=== PATIENT | female | born 1960 | race Caucasian/White ===

== ENCOUNTER → 2016-04-08 | Outpatient (CLI) | payer BC, OTHER ==
[~2016-04-08] MED LIST: AUGMENTIN 875 M1 TAB PO; BENICAR40 MG PO; CLARITIN10 MG PO; MEDROL DOSEPAK4 MG PO; MOTRIN800 MG PO
[2016-04-08 09:48] LABS: EST GLOM FILT AFRICAN AMERICAN > 60 ml/min
== END | disposition home or self-care (01) ==
LOC: LAB 09:21 → CT 10:00
PROVIDERS: Radiology Diagnostic Radiology
DX: K76.0 Fatty (change of) liver, not elsewhere classified (principal); R91.1 Solitary pulmonary nodule; F17.200 Nicotine dependence, unspecified, uncomplicated

== ENCOUNTER → 2017-02-26 | Outpatient (CLI) | payer BC, OTHER | END | disposition home or self-care (01) | LOC: RAD 09:48 | DX: J43.9 Emphysema, unspecified (principal); F17.200 Nicotine dependence, unspecified, uncomplicated ==

== ENCOUNTER → 2018-08-25 | Outpatient (CLI) | payer BC, OTHER | END | disposition home or self-care (01) | LOC: MAMMO 08:39 | DX: Z12.31 Encounter for screening mammogram for malignant neoplasm of breast (principal) ==

== ENCOUNTER 2018-12-19 15:22 | Inpatient (IN) | payer BC ==
[~2018-12-19] VITALS: Ht 152.4 cm; Wt 53.6 kg
[2018-12-19] VITALS (7 sets, daily range): BP systolic 93–178; BP diastolic 46–70
--- NOTE | 2018-12-19 16:53 | NUR ---
JUNE THACKER NOTIFIED THAT THE PT SAID SHE DID NOT REVIEVE ANY PAIN RELIEF FROM THE MORPHINE
[2018-12-19 16:55] LABS: BILIRUBIN NEGATIVE (NEGATIVE); BLOOD TRACE-INTACT (NEGATIVE); CLARITY CLEAR (CLEAR); COLOR YELLOW (YELLOW); GLUCOSE NEGATIVE (NEGATIVE); KETONE NEGATIVE (NEGATIVE); LEUKO ESTERASE 2+ (NEGATIVE); NITRITE NEGATIVE (NEGATIVE); SPECIFIC GRAVITY <= 1.005 (1.005-1.030); UROBILINOGEN 0.2 E.U./dl (0.2-1.0)
[2018-12-19 17:00] LABS: EPITHELIAL CELLS 51-100
[2018-12-19 17:01] LABS: BACTERIA 1+; RBC 0-2 rbc/hpf (0-2); WBC 51-100 wbc/hpf (0-5)
--- NOTE | 2018-12-19 17:53 | NUR ---
2 ICE PACKS PROVIDED FOR PAIN PER PT REQUEST
[2018-12-19 18:03] LABS: HEMATOCRIT 37.3 % (37.0-47.0); MEAN CELL VOLUME 87.6 fl (81.0-99.0); MEAN CORPUSCULAR HGB 30.5 pg (27.0-31.0); MEAN CORPUSCULAR HGB CONC 34.9 g/dl (33.0-37.0); MEAN PLATELET VOLUME 8.6 fl (9.6-12.3); PLATELET COUNT AUTOMATED 348 10*3/uL (130-400); RED BLOOD COUNT 4.26 10*6/uL (4.10-5.10); RED CELL DISTRI WIDTH 11.9 % (0-14.5); WHITE BLOOD COUNT 13.1 10*3/uL (4.8-10.8)
[2018-12-19 18:12] LABS: INTERNATIONAL NORM RATIO 0.9 (2.0-3.5)
[2018-12-19 18:18] LABS: ALBUMIN 3.7 gm/dl (3.1-4.5); ALKALINE PHOSPHATASE 83 U/L (45-117); BUN 12 mg/dl (7-24); CHLORIDE 92 mmol/L (98-107); CREATININE 0.65 mg/dL (0.55-1.02); POTASSIUM 3.9 mmol/L (3.5-5.1); SGOT/AST 17 IU/L (3-35); SGPT/ALT 28 U/L (12-78); SODIUM 123 mmol/L (136-145); TOTAL PROTEIN 7.3 gm/dL (6.4-8.2)
[2018-12-19 18:19] LABS: TROPONIN I < 0.015 ng/ml (<0.045)
[2018-12-19 18:22] LABS: TOTAL CELLS COUNTED 100 #CELLS
[2018-12-19 18:23] LABS: PLATELET SUFFICIENCY NORMAL (NORMAL)
--- NOTE | 2018-12-19 20:00 | NUR ---
THE PT WAS GIVEN A WARM BLANKET TO PRESS AGAINST HER BACK FOR THE PAIN. SHE SAID THE WARMTH FELT BETTER THAN THE ICE PACKS SHE WAS USING EARLIER
--- NOTE | 2018-12-19 21:25 | NUR ---
A 58 year old female, admitted to 5E, under the services of MAMADOU Pavon DO with a diagnosis of LUMBAR RIDICULOPATHY. Chief complaint is BACK PAIN. Patient arrived via bed from ER. Initial assessment completed. Vital signs taken and recorded. MAMADOU PAVON DO notified of admission to the unit. Orders received. See assessment for past medical history, medications and allergies. Patient and/or family oriented to unit. [facility] 5E visitation policy reviewed. Clothing/patient valuable form completed. SKIN WDI. NO WOUNDS PRESENT ON ADMISSION. RAIMUNDO FENG
[2018-12-19] MEDS ORDERED: COZAAR100 MG PO (21:55)
[2018-12-19] MEDS ORDERED: Diltiazem180 MG PO (21:55)
[2018-12-19] MEDS ORDERED: HYDROCHLOROTHIA25 M1 PO (21:56)
--- NOTE | 2018-12-19 22:12 | NUR ---
DR GUTIERREZ NOTIFIED OF PTS ARRIVAL TO FLOOR AND UPDATED MED REC. PT REQUESTS AN ORDER FOR A KPAD TO HELP WITH HER BACK PAIN, DR GUTIERREZ NOTIFIED OF THIS ALONG WITH HER BP READING OF 170/68 MANUALLY AND C/O 10/10 BACK PAIN.
--- NOTE | 2018-12-19 22:55 | NUR ---
PRN MORPHINE ADMINISTERED PRESCRIBED FOR PT C/O 12/30 RIGHT SIDED SCIATIC PAIN THAT RADIATES DOWN HER LEG INTO HER CALF. WILL CONTINUE TO MONITOR AND REASSESS. CALL LIGHT IN REACH.
[2018-12-20] VITALS: BP 170/60
[2018-12-20 06:50] LABS: HEMOGLOBIN 13.2 g/dl (12.0-16.0); MEAN CELL VOLUME 87.6 fl (81.0-99.0); MEAN CORPUSCULAR HGB 30.4 pg (27.0-31.0); MEAN CORPUSCULAR HGB CONC 34.7 g/dl (33.0-37.0); MEAN PLATELET VOLUME 8.6 fl (9.6-12.3); PLATELET COUNT AUTOMATED 380 10*3/uL (130-400); RED BLOOD COUNT 4.34 10*6/uL (4.10-5.10); RED CELL DISTRI WIDTH 11.8 % (0-14.5)
[2018-12-20 07:09] LABS: BUN 12 mg/dl (7-24); CHLORIDE 99 mmol/L (98-107); CHOLESTEROL 190 mg/dL (<200); CREATININE 0.59 mg/dL (0.55-1.02); HDL CHOLESTEROL 102 mg/dl (40-60); LDL CHOLESTEROL 79 mg/dL (9-159); PHOSPHOROUS 3.4 mg/dL (2.5-4.9); POTASSIUM 3.9 mmol/L (3.5-5.1); SODIUM 128 mmol/L (136-145); TRIGLYCERIDES 47 mg/dl (<150); VLDL CHOLESTEROL 9 mg/dL (6-40)
--- NOTE | 2018-12-20 08:05 | NUR ---
NORCO GIVEN FOR C/O BACK PAIN. RATES 8/10 ON PAIN SCALE. WILL MONITOR.
[2018-12-20 08:08] LABS: BURR CELLS FEW; PLATELET SUFFICIENCY NORMAL (NORMAL); ROULEAUX SLIGHT; TOTAL CELLS COUNTED 100 #CELLS
--- NOTE | 2018-12-20 09:10 | NUR ---
JOSE EFFECTIVE PER PT.
[2018-12-20 12:00] VITALS: BP 166/76
--- NOTE | 2018-12-20 12:24 | NUR ---
DR. GARCIA'S OFFICE NOTIFIED OF CONSULT.
--- NOTE | 2018-12-20 13:34 | NUR ---
NORCO GIVEN FOR C/O BACK PAIN. RATES 8/10 ON PAIN SCALE. WILL MONITOR.
--- NOTE | 2018-12-20 14:45 | NUR ---
JOSE EFFECTIVE PER PT.
--- NOTE | 2018-12-20 15:32 | NUR ---
Occupational Therapy evaluation completed on 5 with full eval to follow. Precautions include chronic pain, RLE pain,low complexity level 69683 via chart review, testing and evaluation. Recommend no further OT at this time and home upon dc with patient to have outpatient PT for back pain. Thank you. Karishma Fried OTR/l
--- NOTE | 2018-12-20 15:32 | NUR ---
PHYSICAL THERAPY Physical therapy evaluation complete, 5E. Full evaluation/details to follow. Low complexity PT evaluation per chart review and evaluation (32865). PT to progress gait, transfers, LE strength, and balance per POC. Recommend outpatient PT services at discharge. Thank you. Mariann Cabrera,PT,DPT
[2018-12-20 16:00] VITALS: BP 179/62
--- NOTE | 2018-12-20 16:58 | NUR ---
Stock Trader in to talk to patient. Patient states lives at HOME with . There are FEW steps in the home. Physician: HUMA MESA Pharmacy: [facility] MAIL ORDER Home health services: NONE Patient's level of ADLs: INDEPENDENT Patient has working utilities: YES DME: NONE Follow-up physician's appointment after d/c: WILL BE MADE BY HOSPITALIST NURSE DIRECTOR ON DISCHARGE Does patient want to access PORTAL?: NO Discharge plan PT LIVES AT HOME WITH HER AND IS INDEPENDENT N HER CARE. STATES SHE WILL RETURN HOME WITH NO NEEDS ON DISCHARGE. WILL CONTINUE TO FOLLOW. WILL HAVE A RIDE HOME.. AIDE MEZA
[2018-12-20 20:00] VITALS: BP 191/72
--- NOTE | 2018-12-20 22:27 | NUR ---
PT MEDICATED PER ORDER WITH NORCO FOR COMPLAINT OF 9/10 R LEG PAIN. WILL MONITOR EFFECTIVENESS.
[2018-12-20 22:34] VITALS: BP 162/78
--- NOTE | 2018-12-20 23:00 | NUR ---
DR. GUIDO NOTIFIED OF ELEVATED BLOOD PRESSURES. NO NEW ORDERS AT THIS TIME.
[2018-12-21] VITALS: BP 164/76
--- NOTE | 2018-12-21 | NUR ---
PER PT, NORCO EFFECTIVE FOR LEG PAIN.
[2018-12-21 07:36] LABS: BUN 13 mg/dl (7-24); CHLORIDE 97 mmol/L (98-107); CREATININE 0.61 mg/dL (0.55-1.02); SODIUM 128 mmol/L (136-145)
[2018-12-21 08:00] VITALS: BP 160/70; BP 200/98
--- NOTE | 2018-12-21 08:46 | NUR ---
NORCO GIVEN FOR COMPLAINTS OF LOWER BACK PAIN
--- NOTE | 2018-12-21 09:05 | NUR ---
IN ROOM AT TIME OF BP CHECK 200/98; ORDERED TO GIVE MEDICATIONS EARLY NOW.
--- NOTE | 2018-12-21 10:45 | NUR ---
PHYSICAL THERAPY Patient seen this am 1:1 for therapy visit and was resting supine in bed upon therapist arrival. Patient identified by name / and reports 2/10 Posterior R hip pain along with n/t along lateral side of R Gastroc. Patient transfers all with SBA and instructed on both seated / standing Hamstring / Gastroc stretch. Patient completed 10 reps each with 5 second hold prior to ambulating ad monica in hallway without AD, SBA, > 200'x 1 demonstrating slow, steady aric and no LOB. Patient returned to supine in bed and remained with call light, tray table and cell phone. Will continue per POC as tolerated, total treatment time 14 minutes. Shiva Uriostegui, TUBULAR SPLITTING MACHINE TENDER
[2018-12-21 12:00] VITALS: BP 186/73; BP 188/78
[2018-12-21 12:20] VITALS: BP 188/78
--- NOTE | 2018-12-21 13:13 | NUR ---
DR CARLOS NOTIFIED OF THIS PATIENTS BLOOD PRESSURES THIS AM.
--- NOTE | 2018-12-21 14:19 | NUR ---
PT CONTINUES TO DENY NEEDS AT HOME ON DISCHARGE. WILL CONTINUE TO FOLLOW.
--- NOTE | 2018-12-21 15:16 | NUR ---
PHYSICAL THERAPY CO-SIGN I approve of the Physical Therapy notes written above. TIARRA MOREAU PT, DPT
[2018-12-21 16:00] VITALS: BP 168/66
--- NOTE | 2018-12-21 19:57 | NUR ---
PATIENT MEDICATED WITH NORCO FOR COMPLAINTS OF RIGHT LEG PAIN. WILL CONTINUE TO MONITOR. CALL LIGHT IN REACH.
[2018-12-21 20:00] VITALS: BP 140/70
[2018-12-22 00:29] VITALS: BP 180/65
--- NOTE | 2018-12-22 06:25 | NUR ---
PATIENT MEDICATED WITH NORCO FOR COMPLAINTS OF RIGHT LEG PAIN. WILL CONTINUE TO MONITOR.
[2018-12-22 07:27] LABS: CHLORIDE 96 mmol/L (98-107); POTASSIUM 4.4 mmol/L (3.5-5.1); SODIUM 128 mmol/L (136-145)
[2018-12-22 07:32] LABS: BUN 14 mg/dl (7-24); CREATININE 0.65 mg/dL (0.55-1.02)
[2018-12-22 08:00] VITALS: BP 208/88
[2018-12-22 10:59] VITALS: BP 178/80
--- NOTE | 2018-12-22 11:00 | NUR ---
PATIENT MEDICATED WITH PO NORCO AT THIS TIME FOR COMPLAINTS OF LEG/LOWER BACK PAIN 08/30. WILL MONITOR.
[2018-12-22 12:00] VITALS: BP 150/70
--- NOTE | 2018-12-22 12:00 | NUR ---
PER PATIENT, PAIN MED HAS BEEN EFFECTIVE.
--- NOTE | 2018-12-22 15:24 | NUR ---
PT CONTINUES TO DENY NEEDS ON DISCHARGE. WILL RETURN HOME ON DISCHARGE.
[2018-12-22 16:00] VITALS: BP 143/58
[2018-12-22 20:00] VITALS: BP 167/68
[2018-12-23] VITALS: BP 125/67
--- NOTE | 2018-12-23 05:37 | NUR ---
PATIENT REFUSED NORCO AFTER ALREADY OPENED. SAID SHE HASN'T BEEN TAKING IT. WASTED INTO WASTE BOTTLE ON WALL AT NURSE'S STATION. WITNESSED BY NARAYAN SEVERINO RN.
[2018-12-23 06:47] LABS: BUN 13 mg/dl (7-24); CHLORIDE 94 mmol/L (98-107); CREATININE 0.63 mg/dL (0.55-1.02); POTASSIUM 4.8 mmol/L (3.5-5.1); SODIUM 127 mmol/L (136-145)
[2018-12-23 08:00] VITALS: BP 176/67
--- NOTE | 2018-12-23 08:45 | NUR ---
PHYSICAL THERAPY Patient seen this am 1:1 for therapy visit and was supine in bed upon therapist arrival. Patient identified by name / , reporting only very mild distal / lateral Gastroc, ankle n/t and no c/o's pain. Patient transfers all with SBA and reports she has continued with B hamstring /gastroc stretches and feels this has helped with her decreaed c/o pain. Patient ambulates SBA without AD, > 200'x 2, ad monica in hallway, demonstrating smooth aric and no LOB. Patient also completed TUG in 9.48 seconds, no AD, no LOB. Patient returnd to EOB sit and remained with call light, tray table and cell phone. Oleg continue per POC as tolerated, total treatment time 17 minutes. Shiva Uriostegui, PLANNING AND ANALYSIS MANAGER
[2018-12-23 09:17] VITALS: BP 156/70
--- NOTE | 2018-12-23 09:23 | NUR ---
IN TO SEE PATIENT REGARDING PLAN OF CARE.
[2018-12-23] MEDS ORDERED: CARVEDILOL25 MG PO (11:33)
[2018-12-23] MEDS ORDERED: 'CLONIDINE0.1 MG PO (11:33)
[2018-12-23] MEDS ORDERED: TYLENOL EXTRA500 M2 PO (11:33)
[2018-12-23] MEDS ORDERED: AMLODIPINE BESYL5 MG PO (11:33)
[2018-12-23] MEDS ORDERED: PREDNISONE10 MG PO (11:36)
[2018-12-23 12:00] VITALS: BP 130/60
--- NOTE | 2018-12-23 13:21 | NUR ---
Discharge instructions reviewed with patient/family. Patient receptive and verbalizes understanding. Follow-up care arranged. Written instructions given to patient/family. SEPIDEH GORE
--- NOTE | 2018-12-23 16:00 | NUR ---
PHYSICAL THERAPY CO-SIGN I approve of the Physical Therapy notes written above. TIARRA MOREAU PT,DPT
== END 2018-12-23 13:21 | disposition home or self-care (01) | DRG 552 ==
LOC: ED 15:22 → 5E 20:39 → EDHOLD 20:39 → 5E 21:32
PROVIDERS: Physician Assistant; Student in an Organized Health Care Education/Training Program; ADMIT Family Medicine
DX: M54.16 Radiculopathy, lumbar region (principal); E87.1 Hypo-osmolality and hyponatremia; R82.71 Bacteriuria; M54.41 Lumbago with sciatica, right side; D72.829 Elevated white blood cell count, unspecified; I11.9 Hypertensive heart disease without heart failure; M51.27 Other intervertebral disc displacement, lumbosacral region; R73.9 Hyperglycemia, unspecified; R00.0 Tachycardia, unspecified; Z87.891 Personal history of nicotine dependence; Z79.899 Other long term (current) drug therapy; Z90.49 Acquired absence of other specified parts of digestive tract; Z98.51 Tubal ligation status; Z82.49 Family history of ischemic heart disease and other diseases of the circulatory system; Z80.8 Family history of malignant neoplasm of other organs or systems

== ENCOUNTER → 2019-12-09 | Outpatient (CLI) | payer BC ==
[~2019-12-09] MED LIST changes: +'CLONIDINE0.1 MG PO; +AMLODIPINE BESYL5 MG PO; +CARVEDILOL25 MG PO; +COZAAR100 MG PO; +Diltiazem180 MG PO; +HYDROCHLOROTHIA25 M1 PO; +PREDNISONE10 MG PO; +TYLENOL EXTRA500 M2 PO
[2019-12-09 10:10] LABS: BASO # 0.1 10*3/uL (0.0-0.1); BASO % 0.9 % (0.0-1.0); EOS # 0.2 10*3/uL (0.0-0.4); EOS % 2.5 % (1.0-4.0); HEMATOCRIT 36.2 % (37.0-47.0); LYMPH # 1.4 10*3/uL (1.3-4.4); LYMPH % 18.8 % (27.0-41.0); MEAN CELL VOLUME 85.4 fl (81.0-99.0); MEAN CORPUSCULAR HGB 28.5 pg (27.0-31.0); MEAN CORPUSCULAR HGB CONC 33.4 g/dl (33.0-37.0); MEAN PLATELET VOLUME 8.5 fl (9.6-12.3); MONO # 0.8 10*3/uL (0.1-1.0); MONO % 11.2 % (3.0-9.0); NEUT % 66.2 % (47.0-73.0); PLATELET COUNT AUTOMATED 362 10*3/uL (130-400); RED BLOOD COUNT 4.24 10*6/uL (4.10-5.10); RED CELL DISTRI WIDTH 12.4 % (0-14.5); WHITE BLOOD COUNT 7.5 10*3/uL (4.8-10.8)
[2019-12-09 10:40] LABS: ALBUMIN 3.5 gm/dl (3.1-4.5); ALKALINE PHOSPHATASE 137 U/L (45-117); BUN 8 mg/dl (7-24); CHLORIDE 89 mmol/L (98-107); CREATININE 0.65 mg/dL (0.55-1.02); SGOT/AST 15 IU/L (3-35); SGPT/ALT 31 U/L (12-78); SODIUM 121 mmol/L (136-145); TOTAL PROTEIN 7.4 gm/dL (6.4-8.2)
== END | disposition home or self-care (01) ==
LOC: LAB 09:44
PROVIDERS: ATTEND Family Medicine
DX: I10 Essential (primary) hypertension (principal)

== ENCOUNTER → 2019-12-15 | Outpatient (CLI) | payer BC | END | disposition home or self-care (01) | LOC: LAB 11:25 | PROVIDERS: ATTEND Family Medicine | DX: I10 Essential (primary) hypertension (principal) ==

== ENCOUNTER 2020-01-13 09:19 | Inpatient (IN) | payer BC ==
[2020-01-13] VITALS (13 sets, daily range): BP systolic 100–269; BP diastolic 48–90
[~2020-01-13] VITALS: Ht 152.4 cm; Wt 52.0 kg
--- NOTE | 2020-01-13 09:21 | NUR ---
CALLED PT FOR TRIAGE AND SHE WAS IN THE BATHROOM PER HER .
[2020-01-13] MEDS ORDERED: CLONIDINE HCL0.2 MG PO (09:33)
[2020-01-13] MEDS ORDERED: LABETALOL HCL100 MG PO (09:35)
[2020-01-13 09:46] LABS: BASO # 0.1 10*3/uL (0.0-0.1); BASO % 0.9 % (0.0-1.0); EOS # 0.2 10*3/uL (0.0-0.4); HEMATOCRIT 40.3 % (37.0-47.0); LYMPH # 1.1 10*3/uL (1.3-4.4); LYMPH % 14.1 % (27.0-41.0); MEAN CELL VOLUME 86.1 fl (81.0-99.0); MEAN CORPUSCULAR HGB 28.2 pg (27.0-31.0); MEAN CORPUSCULAR HGB CONC 32.8 g/dl (33.0-37.0); MEAN PLATELET VOLUME 8.9 fl (9.6-12.3); MONO # 0.6 10*3/uL (0.1-1.0); MONO % 8.1 % (3.0-9.0); NEUT # 5.7 10*3/uL (2.3-7.9); NEUT % 74.6 % (47.0-73.0); PLATELET COUNT AUTOMATED 413 10*3/uL (130-400); RED BLOOD COUNT 4.68 10*6/uL (4.10-5.10); RED CELL DISTRI WIDTH 12.9 % (0-14.5); WHITE BLOOD COUNT 7.6 10*3/uL (4.8-10.8)
[2020-01-13 09:55] LABS: ACT PARTIAL THROMBO TIME 31.3 SECONDS (20.0-32.1); INTERNATIONAL NORM RATIO 0.9 (2.0-3.5)
[2020-01-13 10:01] LABS: ALBUMIN 3.8 gm/dl (3.1-4.5); ALKALINE PHOSPHATASE 170 U/L (45-117); BUN 7 mg/dl (7-24); CHLORIDE 104 mmol/L (98-107); CREATININE 0.68 mg/dL (0.55-1.02); POTASSIUM 3.9 mmol/L (3.5-5.1); SGOT/AST 16 IU/L (3-35); SGPT/ALT 27 U/L (12-78); SODIUM 136 mmol/L (136-145); TOTAL PROTEIN 8.4 gm/dL (6.4-8.2)
[2020-01-13 10:06] LABS: TROPONIN I < 0.015 ng/ml (<0.045)
--- NOTE | 2020-01-13 10:37 | NUR ---
PATIENT C/O OF DRY MOUTH, WATER AND SOME ICE CHIPS GIVEN AT THIS TIME. NO S/S OF DISTRESS NOTED. WILL CONTINUE TO MONITOR.
--- NOTE | 2020-01-13 11:23 | NUR ---
LYING IN BED SUPINE, EYES CLOSED, RESPS EASY.
--- NOTE | 2020-01-13 12:01 | NUR ---
PT IS SOUND ASLEEP IN BED, RESPS EASY.
--- NOTE | 2020-01-13 14:26 | NUR ---
BOXED LUNCH PROVIDED REQUESTED.
--- NOTE | 2020-01-13 15:30 | NUR ---
BED IS NOT READY FOR OCCUPANCY, RN WILL CALL WHEN ROOM IS CLEANED.
--- NOTE | 2020-01-13 16:20 | NUR ---
A 59, admitted to , under the services of Dr. ANTONIO BENAVIDES,RONNELL Pham with a diagnosis of CHEST PAIN. Chief complaint is LIGHT HEADED. Patient arrived via stretcher from ER. Monitor applied. Initial assessment completed. Vital signs taken and recorded. DR. ANTONIO BENAVIDES,RONNELL Pham notified of admission to the unit. Orders received. See assessment for past medical history, medications and allergies. Patient and/or family oriented to unit. [facility] ICCU visitation policy reviewed. Clothing/patient valuable form completed. SVITLANA LOPEZ
--- NOTE | 2020-01-13 17:00 | NUR ---
PATIENT ANXIOUS ABOUT MEDICATIONS.
--- NOTE | 2020-01-13 18:00 | NUR ---
PATIENT PUT CALL LIGHT ON AGAIN ASKING ABOUT MEDICATIONS. PATIENT IS ANXIOUS. EDUCATED AGAIN AND EXPLAINED WHEN HER MEDICATIONS WOULD BE GIVEN. PATIENT EXPRESSED THE NEED FOR HOME MEDICATIONS FOR NERVES. TOLD PATIENT TO TALK IT OVER WITH DOCTOR TOMORROW.
--- NOTE | 2020-01-13 22:00 | NUR ---
PT SITTING UP IN BED. BP 198/82, SEE EMAR. CALLED DR. ALVAREZ AT 2218 REGARDING PT HOME MEDICATION DOSE. CHANGED IN EMAR. MEDICATIONS GIVEN. WILL MONITOR. NO C/O AT THIS TIME. CALL LIGHT IN REACH. SEE SHIFT ASSESSMENT.
[2020-01-14] VITALS (10 sets, daily range): BP systolic 135–260; BP diastolic 51–99
--- NOTE | 2020-01-14 | NUR ---
PT RESTING IN BED WITH EYES CLOSED. RESP-EASY AND REGULAR. CALL LIGHT IN REACH.
--- NOTE | 2020-01-14 02:25 | NUR ---
PT AWAKEN TO CHECK BP 148/70. NO C/O AT THIS TIME. CALL LIGHT IN REACH.
--- NOTE | 2020-01-14 05:40 | NUR ---
RESTING IN BED. BP 218/86. MEDICATED WITH AM BP MEDICATION, SEE EMAR. C/O HEADACHE. CALL LIGHT IN REACH. WILL MONITOR BP.
--- NOTE | 2020-01-14 06:45 | NUR ---
CALLED DR. MENDIOLA WITH BP 172/80, MADE AWARE OF PREVIOUS BP. PER HIM RECHECK BP IN 1 HOUR. ALSO PT STATES HEADACHE IS GONE. CALL LIGHT IN REACH.
--- NOTE | 2020-01-14 08:00 | NUR ---
PATIENT ALERT ORIENTED RESTING IN BED. BP 148/84 MANUAL. DENIES CHEST PAIN.
--- NOTE | 2020-01-14 10:00 | NUR ---
PATIENT WALKING IN HALLS.
--- NOTE | 2020-01-14 14:00 | NUR ---
DR. ALVAREZ AWARE OF BLOOD PRESSURE 206/70. MEDICATED WITH 2.5 IV LOPRESSOR PER ORDER.
--- NOTE | 2020-01-14 14:51 | NUR ---
MANUAL BP RECHECK 168/80.
--- NOTE | 2020-01-14 15:17 | NUR ---
PATIENT ANXIOUS OUT TO DESK ASKING TO SEE DOCTOR. REASSURED HER THE DOCTOR WOULD SEE HER.
--- NOTE | 2020-01-14 20:00 | NUR ---
SPOKE WITH DR. ALVAREZ AT THIS TIME NOTIFIED HIM OF PATIENTS BLOOD PRESSURE BEING 190/78 MANUALLY. ORDER RECIEVED FOR IV LOPRESSOR 2.5MG NOW
--- NOTE | 2020-01-14 22:30 | NUR ---
RECHECKED PATIENTS BLOOD PRESSURE AT THIS TIME, BP 230/90. DR. ALVAREZ MADE AWARE. ORDER RECIEVED FOR CARDIOLOGY CONSULT WITH DR. CARVAJAL.
--- NOTE | 2020-01-14 23:10 | NUR ---
ON PHONE WITH , DOCTOR HAD STATED TO INFORMED NURSE TAKING CARE OF THIS PATIENT THAT HE WOULD PREFER PATIENT TO BE TRANSFERRED TO ICCU AND PLACED ON A NITRO DRIP. PATIENTS NURSE MADE AWARE.
--- NOTE | 2020-01-14 23:11 | NUR ---
DR. CARVAJAL PAGED AT THIS TIME
--- NOTE | 2020-01-14 23:15 | NUR ---
SPOKE WITH DR. CARVAJAL AT THIS TIME. ORDERS RECIEVED FOR 25MG HYDRALAZINE PO Q8H TO START NOW. 0.2 CLONIDINE PRN Q6H FOR SYSTOLLIC >160. INCREASE LABAETOLOL TO 300MG Q8H AND TO GIVE A DOSE NOW
--- NOTE | 2020-01-14 23:30 | NUR ---
PATIENT TRANSFERRED TO THE ICU AT THIS TIME. PATIENT STATED THAT SHE INFORMED HER OF THE MOVE.
[2020-01-15] VITALS (35 sets, daily range): BP systolic 98–241; BP diastolic 41–102
--- NOTE | 2020-01-15 07:45 | NUR ---
0773 pT. ON bsc, CALL LIGHT ON , Stated "I feel funny" BP 98/47 HR 47 Ntg to off. On attempt to assist to bed, pt. stiffened, eyes rolled back , mouth clenched tight HR noted to be as low as 20. Atropine was called for, Pt. was lifted into bed, Code blue was called 30 sec of chest compressions and assisted breathing w/ ambu. 1 amp atropine was given IV. HR and BP were restored. dr. Reyes ans Dr. Ackerman were notified of events.
[2020-01-15 07:50] LABS: BASO # 0.1 10*3/uL (0.0-0.1); BASO % 0.9 % (0.0-1.0); EOS # 0.3 10*3/uL (0.0-0.4); EOS % 3.3 % (1.0-4.0); HEMATOCRIT 36.6 % (37.0-47.0); LYMPH # 1.6 10*3/uL (1.3-4.4); LYMPH % 16.7 % (27.0-41.0); MEAN CELL VOLUME 86.9 fl (81.0-99.0); MEAN CORPUSCULAR HGB 28.3 pg (27.0-31.0); MEAN CORPUSCULAR HGB CONC 32.5 g/dl (33.0-37.0); MONO # 0.9 10*3/uL (0.1-1.0); MONO % 9.8 % (3.0-9.0); NEUT # 6.4 10*3/uL (2.3-7.9); NEUT % 68.4 % (47.0-73.0); PLATELET COUNT AUTOMATED 359 10*3/uL (130-400); RED BLOOD COUNT 4.21 10*6/uL (4.10-5.10); RED CELL DISTRI WIDTH 13.1 % (0-14.5); WHITE BLOOD COUNT 9.4 10*3/uL (4.8-10.8)
[2020-01-15 08:10] LABS: ALBUMIN 3.3 gm/dl (3.1-4.5); ALKALINE PHOSPHATASE 134 U/L (45-117); BUN 11 mg/dl (7-24); CHLORIDE 104 mmol/L (98-107); CREATININE 0.79 mg/dL (0.55-1.02); POTASSIUM 4.3 mmol/L (3.5-5.1); SGOT/AST 17 IU/L (3-35); SGPT/ALT 24 U/L (12-78); SODIUM 135 mmol/L (136-145)
--- NOTE | 2020-01-15 09:12 | NUR ---
States chest is a little sore. Breakfast ordered.
--- NOTE | 2020-01-15 11:54 | NUR ---
Self bath at bedside. Assisted to BSC for BM. then returned remains hypertensive and medicated.
--- NOTE | 2020-01-15 14:14 | NUR ---
Dr. Reyes in to evaulate. Antihypertensive effective.
--- NOTE | 2020-01-15 18:08 | NUR ---
Catapress TTS placed to left shoulder. Pt. exprees that she came to the hospital to get off of catapress. discussed HTN and medical mgt w/ pt. patch remains on at this time.
--- NOTE | 2020-01-15 20:09 | NUR ---
PT. RESTING IN BED. HEP LOCK IN ESTELA ASYMPT. LUNGS CLEAR BILAT, PULSE OX 96% ON RA. ABDOMEN SOFT, NONDISTENDED AND NORMO. NO PERIPHERAL EDEMA NOTED. NO COMPLAINTS OF CHEST PAIN, SOB OR DISCOMFORT. RESP. EASY AND REG, NO DISTRESS. REMINDED PT OF NPO STATUS AFTER MIDNIGHT FOR AM STRESS TEST. BETHANY KANGRN
--- NOTE | 2020-01-15 20:10 | NUR ---
PT. GIVEN CATAPRESS ORDERED FOR B/P OF 172/61. WILL CONTINUE TO MONITOR.
--- NOTE | 2020-01-15 21:25 | NUR ---
PT'S REPEAT B/P 172/54, CATAPRESS INEFFECTIVE. PM MEDS GIVEN.
[2020-01-16] VITALS (7 sets, daily range): BP systolic 137–189; BP diastolic 53–74
--- NOTE | 2020-01-16 09:00 | NUR ---
Flexographic Printing Machinist in to talk to patient. Patient states lives at home with her . There are 11-12 steps in the home. Physician: Dr. Kashif Acosta Pharmacy: [facility] or mail order Home health services: none Patient's level of ADLs: INDEPENDENT Patient has working utilities: yes DME: none Follow-up physician's appointment after d/c: she prefers to make her own follow up appt after discharge Does patient want to access PORTAL?: no Discharge plan discussed with patient. She lives at home with her . She is independent in her ADLs and ambulation. Discussed home health care services and she declines. CM will continue to follow for any discharge planning needs. When medically stable she will be discharged to home. She states her will provide transportation on discharge. She states she is awaiting her stress test at 11am and her blood pressure to be under control. TIARRA TELLEZ
--- NOTE | 2020-01-16 10:11 | NUR ---
Adriana from [facility] here , ok'd for pt. to have water. Antihypertensives given.
--- NOTE | 2020-01-16 11:16 | NUR ---
To jarrod denise for stress test.
--- NOTE | 2020-01-16 12:05 | NUR ---
INFORMED SIGNED CONSENT OBTAINED FOR LEXISCAN STRESS TEST WITH DR CARVAJAL. RESTING EKG NSR HR 69 BP 150/88. PULSE OX 975 LUNGS CLEAR. PT COMPLETED ONE MINUTE OF A LEXISCAN PROTOCOL WITH PT RECEIVING LEXISCAN 0.4MG IV OVER 10 SECON[address] NO ARRHYTMI[address] OR [address] CHANGE SEEN. PT C/O SOB AND LIGHTHEADED WITH INJECTION. THAT RESOLVED IN RECOVERY. LAST RECOVERY HR OF 94 BP 144/78. PT IN STABLE CONDITION, AWAITING NUCLEAR IMAGES.
--- NOTE | 2020-01-16 13:24 | NUR ---
Returned from stress testing, Lunch ordered.
--- NOTE | 2020-01-16 14:16 | NUR ---
Up and about in room.
--- NOTE | 2020-01-16 16:43 | NUR ---
Independent in room. BSC emptied for 1/2 roll of toilet paper w/ urine absorbed into it. Un measurable.
--- NOTE | 2020-01-16 20:05 | NUR ---
PT. WATCHING TV. HEP LOCK IN ESTELA ASYMPT LUNGS CLER BILAT, PULSE OX 98% ON RA. ABDOMEN SOFT, NONDISTENDED AND NORMO. NO PERIPHERAL EDEMA NOTED. RESP. EASY AND REG NO DISTRESS. PT. DENIES CHEST PAIN OR DISCOMFORT AT PRESENT. BETHANY KANG RN
--- NOTE | 2020-01-16 23:27 | NUR ---
PT. GIVEN CATAPRESS AT 2323 FOR B/P OF , WILL CONTINUE TO MONITOR.
[2020-01-17] VITALS (8 sets, daily range): BP systolic 143–201; BP diastolic 55–80
--- NOTE | 2020-01-17 07:21 | NUR ---
Shift chart check completed.24 HR chart check completed.
--- NOTE | 2020-01-17 07:58 | NUR ---
PRN DOSE OF CATAPRES 0.2MG AND HER ROUTINE DAILY COZAAR GIVEN FOR MANUAL BP 180/80.
--- NOTE | 2020-01-17 08:12 | NUR ---
ON ASSESSMENT PATIENT UP AND ABOUT IN ROOM. TEXTING OR TALKING ON HER PHONE. NO VOICED COMPLAINTS OF PAIN. VERY TALKATIVE. ROOM AIR. SEE ALL APPRPOPRIATE INTERVENTIONS.
--- NOTE | 2020-01-17 09:00 | NUR ---
CM in to see patient. No new needs or request at this time. Discussed home health care services and she declines. CM will continue to follow for any discharge planning needs. When medically stable she will be discharged to home.
--- NOTE | 2020-01-17 12:52 | NUR ---
I HAVE OFFERED TO HELP PATIENT GET BATHED. SHE HAS DECLINED.
--- NOTE | 2020-01-17 16:53 | NUR ---
DR CARVAJAL VISITED. EXTRA DOSE OF HYDRALAZINE 25MG HAS BEEN GIVEN AND DOSE WILL BE INCREASED TO 50MG Q8H STARTING TONIGHT. HE INDICATED PT COULD GO TO TELEMETRY FAR HE WAS CONCERNED. DR ALVAREZ MADE ROUNDS EARLIER.
[2020-01-18] VITALS (11 sets, daily range): BP systolic 149–220; BP diastolic 62–80
--- NOTE | 2020-01-18 07:19 | NUR ---
Shift chart check completed.24 HR chart check completed.
--- NOTE | 2020-01-18 07:44 | NUR ---
ON ASSESSMENT PATIENT IS UP AND ABOUT IN HER ROOM. NO VOICED COMPLAINTS. SHE'S TEXTING/TALKING ON HER PHONE/PLANNING BREAKFAST. VERY TALKATIVE. NO DYSRHYTHMIAS. NO C/O SHORTNESS OF BREATH. SEE ALL APPROPRIATE INTERVENTIONS.
--- NOTE | 2020-01-18 07:56 | NUR ---
ROUTINE LOSARTAN GIVEN.
--- NOTE | 2020-01-18 08:37 | NUR ---
DR ALVAREZ UPDATED ON DR SOUTH RECOMMENDATION YESTERDAY THAT OKAY TO TRANSFER TO TELEMETRY.
--- NOTE | 2020-01-18 09:00 | NUR ---
CM in to see patient. No new needs or request at this time. Discussed home health care services and she declines. CM will continue to follow for any discharge planning needs. When medically stable she will be discharged to home. Discussed discharge planning with Dr. Reyes. Patient to be downgraded to telemetry today. Blood pressures are not controlled.
--- NOTE | 2020-01-18 09:55 | NUR ---
SVITLANA YOUNG, SHIFT DIRECTOR, NOTIFIED PT NOW TELEMETRY PATIENT.
--- NOTE | 2020-01-18 11:30 | NUR ---
CLONIDINE 0.2MG PO FOR BP 191/62. EXPLANATIONS ABOUT MOVING TELEMETRY PATIENTS UNDER DIRECTION OF SHIFT DIRECTOR.
--- NOTE | 2020-01-18 12:22 | NUR ---
EARLIER CLONIDINE INEFFECTIVE FOR HYPERTENSION. REACHING OUT TO CARDIOLOGY.
--- NOTE | 2020-01-18 12:38 | NUR ---
DR RIVAS, CARDIOLOGY RESIDENT, NOTIFIED OF PERSISTENT HYPERTENSION IN SPITE OF PRN CLONIDINE. REVIEWED WITH HIM MEDS THAT I HAVE ALREADY GIVEN. WILL RECHECK IN 30 MINUTES AND CARDIOLOGY WILL BE ROUNDING.
--- NOTE | 2020-01-18 13:17 | NUR ---
BP NOW 149/62.
--- NOTE | 2020-01-18 16:21 | NUR ---
FIRST DOSE OF MINOXIDIL GIVEN WITH EXPLANATIONS TO CHANGE POSITIONS SLOWLY.
--- NOTE | 2020-01-18 20:35 | NUR ---
PATIENT AND BELONGINGS TRANSFERED TO [facility] PATIENT STABLE REPORT GIVEN TO EMMIE BRIGGS.
[2020-01-19] VITALS (13 sets, daily range): BP systolic 60–206; BP diastolic 30–83
--- NOTE | 2020-01-19 06:15 | NUR ---
PT STATING THAT SHE IS DIZZY AND NAUSEATED. VITALS OBTAINED. PULSE OF 54, BP 60/30, PULSE OX 98%
--- NOTE | 2020-01-19 06:30 | NUR ---
DR ARMENTA NOTIFIED THAT PATIENT IS SYMPTOMATIC WITH A BP OF 60/30. ORDERS RECIEVED FOR 500CC BOLUS OF NS.
--- NOTE | 2020-01-19 08:37 | NUR ---
PRN TYLENOL GIVEN FOR HEADACHE
--- NOTE | 2020-01-19 09:17 | NUR ---
CM in to see patient. No new needs or request at this time. She states she feels shaky at times. Discussed anti-anxiety medications. She states she has not had anything like that for a while but would be open to it if it would decreased her shakiness. Discussed with Dr. Reyes. New orders received. When medically stable she will be discharged to home.
--- NOTE | 2020-01-19 10:18 | NUR ---
2 ATTEMPTS MADE TO REACH REGARDING HTN BP 200/70 BILATERAL, NOTIFIED AND REQUESTED I GET AHOLD OF , INFORMED THAT I WAS UNABLE AT THIS TIME. NO NEW ORDERS WILL CONTINUE TO TRY TO CONTACT
--- NOTE | 2020-01-19 10:28 | NUR ---
ATTEMPTS MADE TO CONTACT AGAIN NO ANSWER, ALSO ATTEMPTED TO CALL [facility], NO ANSWER AT THIS TIME, WILL CONTINUE TO TRY TO CONTACT REGARDING HTN
--- NOTE | 2020-01-19 10:41 | NUR ---
SPOKE WITH , NOTIFIED HIM OF BP, OK TO GIVE PRN CLONIDINE, I INFORMED THAT ACCORDING TO NURSING NOTES CLONIDINE WAS INEFFECTIVE FOR PRIOR HTN EPISODES
--- NOTE | 2020-01-19 10:46 | NUR ---
PRN CLONIDINE GIVEN PER ORDER
--- NOTE | 2020-01-19 17:19 | NUR ---
PRN CLONIDINE AND BUSPAR GIVEN FOR HTN 206/70 WILL RECHECK IN 30 MINUTES
--- NOTE | 2020-01-19 19:00 | NUR ---
BP RECHECK 160/60
--- NOTE | 2020-01-19 23:42 | NUR ---
PATIENTS BP 172/50, CATAPRES GIVEN. WILL REASSESS.
[2020-01-20] VITALS: BP 173/50
--- NOTE | 2020-01-20 | NUR ---
PATIENTS BP 160/50. MONITORING.
[2020-01-20 08:00] VITALS: BP 150/78
--- NOTE | 2020-01-20 08:30 | NUR ---
CM in to see patient. No new needs or request at this time. Discussed home health care services and she declines. CM will continue to follow for any discharge planning needs. When medically stable she will be discharged to home. She states her mother was the same way with her blood pressures.
--- NOTE | 2020-01-20 11:43 | NUR ---
Medicated with clonodine per prn order for elevated bp. BP to rt arm was 190/100 and left arm was 200/90.
[2020-01-20 12:00] VITALS: BP 200/90
--- NOTE | 2020-01-20 12:10 | NUR ---
Dr. Reyes in and saw pt.
--- NOTE | 2020-01-20 12:38 | NUR ---
Buspar given per prn order for anxiety.
--- NOTE | 2020-01-20 13:15 | NUR ---
States that buspar was effective.
[2020-01-20 16:00] VITALS: BP 183/56
--- NOTE | 2020-01-20 16:54 | NUR ---
Pt states she experienced a lot of diarrhea after taking zoloft. States this is the first time she took it and has had diarrhea ever since.
--- NOTE | 2020-01-20 16:56 | NUR ---
Pt states that her bp was elevated when aide checked it with vitals. I rechecked bp and it was 170/72. Pt states she just had an irritating conversation. States someone called her with a survey about the hospital. She states she thinks that agitated her. I asked pt if she wanted a clonodine for SBP > 160. Pt states she is trying to get off that medication and wants to try to relax on her own.
--- NOTE | 2020-01-20 19:00 | NUR ---
WENT INTO ROOM PATIENT C/O FEELING LIKE HER BP IS ELEVATED, MANUAL BP OF 220/98, PER ORDERS CLONIDINE GIVEN. CALL PLACED TO DR. ARMENTA ADVISED OF ELEVATED BP, ALSO ADVISED THAT WHEN PATIENTS BP WAS 170/72 SHE REFUSED CLONIDINE. NO NEW ORDERS GIVEN AT THIS TIME.
[2020-01-20 20:00] VITALS: BP 175/57
--- NOTE | 2020-01-20 20:55 | NUR ---
BLOOD PRESSURE 175/57 PRE ADMINISRATION OF MEDICATION. PATIENT ALERT, ORIENT, ABLE TO FOLLOW DIRECTIONS. ANXIOUS. DENIES PAIN AND SHORTNESS OF BREATH.
--- NOTE | 2020-01-20 22:14 | NUR ---
BLOOD PRESSURE 150/62 TAKEN MANUALLY. PATIENT C/O THROAT BEING HOARSE AND HOT FLASHES. CALL PLACED TO DR. ARMENTA, NO NEW ORDERS RECIEVED OVER THE PHONE.
[2020-01-21] VITALS (9 sets, daily range): BP systolic 148–182; BP diastolic 51–80
--- NOTE | 2020-01-21 01:22 | NUR ---
C/O BILATERAL TRACE ANKLE EDEMA. HOT FLASH FEELING. MANUAL BLOOD PRESSURE 182/62.
--- NOTE | 2020-01-21 07:40 | NUR ---
DR. Pittman in and examined pt. Discussed plan of care and changes to medications. Plan for dc tomorrow if bp controlled with med changes. Pt agreeable.
[2020-01-21 08:00] LABS: BASO # 0.1 10*3/uL (0.0-0.1); BASO % 0.8 % (0.0-1.0); EOS # 0.3 10*3/uL (0.0-0.4); EOS % 3.2 % (1.0-4.0); HEMATOCRIT 36.7 % (37.0-47.0); LYMPH # 1.5 10*3/uL (1.3-4.4); LYMPH % 16.4 % (27.0-41.0); MEAN CELL VOLUME 85.2 fl (81.0-99.0); MEAN CORPUSCULAR HGB 28.1 pg (27.0-31.0); MEAN PLATELET VOLUME 8.8 fl (9.6-12.3); MONO # 0.9 10*3/uL (0.1-1.0); MONO % 9.7 % (3.0-9.0); NEUT # 6.3 10*3/uL (2.3-7.9); NEUT % 69.7 % (47.0-73.0); PLATELET COUNT AUTOMATED 353 10*3/uL (130-400); RED BLOOD COUNT 4.31 10*6/uL (4.10-5.10); WHITE BLOOD COUNT 9.1 10*3/uL (4.8-10.8)
[2020-01-21 08:14] LABS: ALBUMIN 3.5 gm/dl (3.1-4.5); ALKALINE PHOSPHATASE 158 U/L (45-117); BUN 10 mg/dl (7-24); CHLORIDE 103 mmol/L (98-107); POTASSIUM 4.5 mmol/L (3.5-5.1); SGOT/AST 32 IU/L (3-35); SGPT/ALT 49 U/L (12-78); SODIUM 132 mmol/L (136-145); TOTAL PROTEIN 7.2 gm/dL (6.4-8.2)
--- NOTE | 2020-01-21 10:10 | NUR ---
Called pharmacy for them to send buspar. Not in pyxis on 4e. Called to 5e for someone to send to me but never received. Waiting on buspar from pharmacy. Spoke with Mildred.
--- NOTE | 2020-01-21 13:05 | NUR ---
BP was 190/78, notified by RN who was covering for me while I was at lunch. I gave routine medications at this time for bp including increased dose of apresoline. Will recheck pt in half an hour. Pt states her ankles as swelling again as well. Nonpitting edema noted especially to rt ankle. Pt states she is having hot flashes as well.
--- NOTE | 2020-01-21 13:36 | NUR ---
BP was rechecked mbp to left arm 132/90, rt arm was 132/72.
--- NOTE | 2020-01-21 16:12 | NUR ---
Medicated with clonodine po per prn order for BP of 170/80.
--- NOTE | 2020-01-21 20:18 | NUR ---
Patient having headache and states she can tell her blood pressure is up. BP is 182/62, Catapres and tylenol given. Will monitor and reassess.
--- NOTE | 2020-01-21 21:30 | NUR ---
Patient states headache is gone and new blood pressure was taken and is 148/62.
--- NOTE | 2020-01-21 23:17 | NUR ---
Received call from [employer] that patients heart rate was in the 30's. When in the room to check on patient, she was showing seizure like activity, would not respond to stimuli, heart rate on portable monitor reads 28, crash cart brought in, patient pulseless at 2319, chest compressions started and patient became alert after about 10 compresssions. Patient alert, answering questions, remembers that it had happend on the too. Patient states she remembers getting a hot flash before going to bed. CRX ordered and labs. Patient does have pain from the compressions. Awaiting new orders.
--- NOTE | 2020-01-21 23:30 | NUR ---
Notified Dr. Pittman of 30 second code and she stated to contact cardiology.
--- NOTE | 2020-01-21 23:31 | NUR ---
Patients vital signs after 130/46, hr 74, resp 18, pox 100%
--- NOTE | 2020-01-21 23:31 | NUR ---
Contacted Dr. Mora answering service, needing call back. Awaiting call.
--- NOTE | 2020-01-21 23:45 | NUR ---
Notified Dr. Vásquez answering service again for emergency, awaiting call back.
[2020-01-21 23:58] LABS: ALBUMIN 3.1 gm/dl (3.1-4.5); ALKALINE PHOSPHATASE 137 U/L (45-117); BUN 12 mg/dl (7-24); CHLORIDE 101 mmol/L (98-107); CREATININE 0.87 mg/dL (0.55-1.02); POTASSIUM 3.9 mmol/L (3.5-5.1); SGOT/AST 23 IU/L (3-35); SGPT/ALT 39 U/L (12-78); SODIUM 133 mmol/L (136-145); TOTAL PROTEIN 6.7 gm/dL (6.4-8.2)
[2020-01-22] VITALS (18 sets, daily range): BP systolic 58–211; BP diastolic 22–106
--- NOTE | 2020-01-22 00:09 | NUR ---
Another attempt to contact Dr. Mora group. Awaiting call back.
--- NOTE | 2020-01-22 00:21 | NUR ---
Received call back from Dr. Ackerman, updated on what happened and with new vital signs and patients status. Dr. Ackerman stated she may need a pacemaker, but will discuss in the morning when he comes in to see patient.
--- NOTE | 2020-01-22 02:06 | NUR ---
Patient has complaint of headache, bp taken 138/66, Tylenol given. Will monitor and reassess.
--- NOTE | 2020-01-22 05:00 | NUR ---
Tylenol effective for headache. Patients blood pressure-158/58.
--- NOTE | 2020-01-22 06:34 | NUR ---
Patient called out and stated she felt dizzy, blood pressure was taken and read 58/22(m) heart rate 58, patient felt hot and sick to her stomach. Bolus started, atropine pull in case needed. Patient alert, does have some shaking in her legs. Will notify cardiology.
--- NOTE | 2020-01-22 06:40 | NUR ---
Contacted Dr. Ackerman explained situation, no new orders received.
--- NOTE | 2020-01-22 06:42 | NUR ---
Recheck of bp 120/52.
--- NOTE | 2020-01-22 09:26 | NUR ---
IV started right forearm with #22 protective cath after 1 attempts. Site prepped with Chloroprep. Sterile dressing applied. Patient tolerated procedure well. IV infusing at 100 cc/hr. VARGHESE RUIZ
--- NOTE | 2020-01-22 11:00 | NUR ---
MINOXIDIL PO GIVEN
--- NOTE | 2020-01-22 14:35 | NUR ---
1425 PATIENT UP IN BATHROOM WITH AIDE HR JUMPED TO 136 - NOT FEELING WELL ASSISTED BACK TO BED WITH 2 ASSIST. WARM & DRY TO TOUCH. 1428 HR SINUS 118 ... BP DOWN TO 167/70.. FEELING BETTER PER PT A DOCTOR CAME THROUGH AND MENTIONED EP STUDIES & POSSIBLE PACE MAKER - DID SHE PREFER [facility] OR [place]
--- NOTE | 2020-01-22 15:13 | NUR ---
PATIENT CALLED OUT FEELING HOT, AND FEELS LIKE LEGS SHAKEY. SHIVERING AND HOB LOWERED -- PATIENT WARM & DRY / AAOX3.. VSS. SINUS TACH ON MONITOR
--- NOTE | 2020-01-22 15:26 | NUR ---
DISCUSSED EP STUDIES & PACEMAKER - ALSO DISCUSSED IMPORTANCE/RISKS OF STRAINING TO USE THE BATHROOM
--- NOTE | 2020-01-22 18:10 | NUR ---
DR CARVAJAL CALLED AND ORDERS RECEIVED
--- NOTE | 2020-01-22 18:25 | NUR ---
DR CARVAJAL CALLED WITH CHANGE IN RHYTHM ( NOW CHAOTIC ATRIAL ) AND C/O PALPITATION, LUMP IN THROAT, FREQ URINATION, LEGS ACHY, ANXIOUS, SOB/CAN'T GET HER BREATH...IV LOPRESSOR GIVEN
--- NOTE | 2020-01-22 19:01 | NUR ---
DR CARVAJAL CALLED WITH UPDATE. ORDERS RECEIVED FOR ANOTHER 5MG IV LOPRESSOR
--- NOTE | 2020-01-22 19:31 | NUR ---
LOPRESSOR GIVEN PER ORDERS. PT HAS OCC PROD COUGH. SLIGHT LUMP IN THROAT, REMAINS SOB AT REST BUT IMPROVED FROM EARLIER. NOT SHIVERING AT PRESENT
--- NOTE | 2020-01-22 20:00 | NUR ---
ASSESSMENT COMPLETE. ASSISTED TO BEDSIDE. ADVISED NOT TO STRAIN WHEN USING BATHROOM. SHE VERBALIZED UNDERSTANDING. VSS. DENIES ANY PAIN OR DIZZINESS AT THIS TIME. REINFORCED IMPORTANCE OF USING CALL LIGHT FOR ASSISTANCE D/T EPISODES BEFORE. CALL LIGHT IN REACH.
[2020-01-23] VITALS: BP 155/53
--- NOTE | 2020-01-23 07:54 | NUR ---
On assessment pt. is brian, w/ generalized swelling of face and extremities. palm are bright red , c/o difficulty swallowing and tightening in throat. khanh-orbital edema present. Dr. Reyes was notified and orders were reieved.
[2020-01-23 08:00] VITALS: BP 180/60
--- NOTE | 2020-01-23 08:18 | NUR ---
[facility] cardiology office was notified of possible medication reaction Stated Dr. Mcwilliams would be here in abt and hour.
--- NOTE | 2020-01-23 09:00 | NUR ---
CM in to see patient. She is currently having an echo completed at bedside. Will follow up at a later time.
--- NOTE | 2020-01-23 09:58 | NUR ---
Discussed discharge planning with Dr. Reyes. In Dr. Ackerman's progress note there is mention of transferring the patient to [facility] for electrophysiology. Awaiting Dr. Reyes to [facility].
--- NOTE | 2020-01-23 10:25 | NUR ---
DR. Mcwilliams in to [facility]. Informed of allergic reaction to new meds. Call from [employer] w/ repoted HR 130's. pt. up to void . non sustained. Solumedrol given for allergic reaction. Pt. stated she feels much better. less swelling on face , upper and lower extremities. reddness has decreased. Minoxidil and apressoline held .
--- NOTE | 2020-01-23 11:36 | NUR ---
[facility]
[2020-01-23 12:00] VITALS: BP 185/54
--- NOTE | 2020-01-23 14:56 | NUR ---
Dr. Pham was notified of consult
[2020-01-23 14:58] VITALS: BP 190/72
[2020-01-23 16:00] VITALS: BP 216/86
--- NOTE | 2020-01-23 16:43 | NUR ---
[facility] called w/ bed assignment. Dr. Pham in to [facility] pt. spoke w/ her at length as to plan of care and treatment. Antianxiety was ordered and give. Pt. tremulous and brian in color. Report was called to Jinny at [phone]. Awaiting Life team for transportation. Pt. requests visit from prior to departure, pipe joints supervisor was notified and ok'd visit.
--- NOTE | 2020-01-23 17:12 | NUR ---
Spouse and life team arrived. pt. sent a few belongings home with spouse. Departed to [facility].
== END 2020-01-23 17:12 | disposition short-term general hospital (02) | DRG 305 ==
LOC: ED 09:19 → EDHOLD 14:32 → ICCU 14:32 → 4E 15:29 → ICCU 01-14 23:47 → 5E 01-16 06:29 → ICCU 01-16 06:30 → 4E 01-18 20:08
PROVIDERS: Emergency Medicine; Internal Medicine; ADMIT Internal Medicine; ATTEND Internal Medicine
DX: I16.0 Hypertensive urgency (principal); E87.1 Hypo-osmolality and hyponatremia; R00.1 Bradycardia, unspecified; I95.9 Hypotension, unspecified; I10 Essential (primary) hypertension; J43.2 Centrilobular emphysema; M54.16 Radiculopathy, lumbar region; R73.9 Hyperglycemia, unspecified; E74.39 Other disorders of intestinal carbohydrate absorption; F41.1 Generalized anxiety disorder; T78.49XA Other allergy, initial encounter; T50.995A Adverse effect of other drugs, medicaments and biological substances, initial encounter; X58.XXXA Exposure to other specified factors, initial encounter; F17.210 Nicotine dependence, cigarettes, uncomplicated; Z90.49 Acquired absence of other specified parts of digestive tract; Z79.899 Other long term (current) drug therapy; Z82.49 Family history of ischemic heart disease and other diseases of the circulatory system; Y92.89 Other specified places as the place of occurrence of the external cause

== ENCOUNTER 2020-05-31 06:25 | Emergency (ER) | payer BC ==
[~2020-05-31] VITALS: Ht 152.4 cm; Wt 54.4 kg
[~2020-05-31 06:25] MED LIST changes: +CLONIDINE HCL0.2 MG PO; +LABETALOL HCL100 MG PO
[2020-05-31 07:19] LABS: BASO # 0.1 10*3/uL (0.0-0.1); BASO % 0.5 % (0.0-1.0); EOS % 0.2 % (1.0-4.0); HEMATOCRIT 36.5 % (37.0-47.0); LYMPH # 0.7 10*3/uL (1.3-4.4); LYMPH % 6.6 % (27.0-41.0); MEAN CELL VOLUME 85.5 fl (81.0-99.0); MEAN CORPUSCULAR HGB 28.3 pg (27.0-31.0); MEAN CORPUSCULAR HGB CONC 33.2 g/dl (33.0-37.0); MEAN PLATELET VOLUME 8.4 fl (9.6-12.3); MONO # 0.9 10*3/uL (0.1-1.0); MONO % 8.7 % (3.0-9.0); NEUT # 8.6 10*3/uL (2.3-7.9); NEUT % 83.5 % (47.0-73.0); PLATELET COUNT AUTOMATED 350 10*3/uL (130-400); RED BLOOD COUNT 4.27 10*6/uL (4.10-5.10); RED CELL DISTRI WIDTH 12.2 % (0-14.5); WHITE BLOOD COUNT 10.3 10*3/uL (4.8-10.8)
[2020-05-31 07:30] LABS: ALBUMIN 3.5 gm/dl (3.1-4.5); ALKALINE PHOSPHATASE 155 U/L (45-117); BUN 12 mg/dl (7-24); CHLORIDE 89 mmol/L (98-107); CREATININE 0.74 mg/dL (0.55-1.02); POTASSIUM 3.7 mmol/L (3.5-5.1); SGOT/AST 23 IU/L (3-35); SGPT/ALT 37 U/L (12-78); SODIUM 122 mmol/L (136-145); TOTAL PROTEIN 7.8 gm/dL (6.4-8.2)
[2020-05-31 07:31] LABS: TROPONIN I < 0.015 ng/ml (<0.045)
[2020-05-31 08:19] LABS: BILIRUBIN Negative (Negative); BLOOD Trace-Lysed (Negative); CLARITY Clear (Clear); COLOR Yellow (Yellow); GLUCOSE Negative (Negative); KETONE Negative (Negative); LEUKO ESTERASE Trace (Negative); NITRITE Negative (Negative); SPECIFIC GRAVITY 1.015 (1.001-1.030); UROBILINOGEN 0.2 E.U./dl (0.0-1.0)
[2020-05-31 08:30] VITALS: BP 185/59
[2020-05-31 08:35] LABS: BACTERIA 3+
== END 2020-05-31 09:16 | disposition short-term general hospital (02) ==
LOC: ED 06:25
PROVIDERS: Emergency Medicine
DX: S27.0XXA Traumatic pneumothorax, initial encounter (principal); E87.1 Hypo-osmolality and hyponatremia; R55 Syncope and collapse; Z79.899 Other long term (current) drug therapy; Z90.49 Acquired absence of other specified parts of digestive tract; Z98.890 Other specified postprocedural states; Z98.51 Tubal ligation status; Z87.891 Personal history of nicotine dependence; W18.30XA Fall on same level, unspecified, initial encounter; Y93.89 Activity, other specified; Y92.89 Other specified places as the place of occurrence of the external cause; Y99.9 Unspecified external cause status

== ENCOUNTER 2020-06-05 07:18 | Observation (INO) | payer BC ==
[2020-06-05] VITALS (7 sets, daily range): BP systolic 160–198; BP diastolic 59–85
[~2020-06-05] VITALS: Ht 152.4 cm; Wt 53.3 kg
[2020-06-05] MEDS ORDERED: AMLODIPINE BESYL5 MG PO (07:30)
[2020-06-05] MEDS ORDERED: WELLBUTRIN SR150 MG PO (07:31)
[2020-06-05] MEDS ORDERED: METHOCARBAMOL500 M1 PO (07:32)
[2020-06-05] MEDS ORDERED: ASPERCREME LID1 EACH TD (07:32)
[2020-06-05 08:02] LABS: BASO % 0.3 % (0.0-1.0); EOS % 0.5 % (1.0-4.0); HEMATOCRIT 36.4 % (37.0-47.0); LYMPH # 0.7 10*3/uL (1.3-4.4); LYMPH % 10.2 % (27.0-41.0); MEAN CELL VOLUME 87.1 fl (81.0-99.0); MEAN CORPUSCULAR HGB 28.5 pg (27.0-31.0); MEAN CORPUSCULAR HGB CONC 32.7 g/dl (33.0-37.0); MEAN PLATELET VOLUME 8.7 fl (9.6-12.3); MONO # 0.7 10*3/uL (0.1-1.0); MONO % 10.4 % (3.0-9.0); NEUT # 5.1 10*3/uL (2.3-7.9); NEUT % 78.1 % (47.0-73.0); PLATELET COUNT AUTOMATED 340 10*3/uL (130-400); RED BLOOD COUNT 4.18 10*6/uL (4.10-5.10); RED CELL DISTRI WIDTH 12.7 % (0-14.5); WHITE BLOOD COUNT 6.6 10*3/uL (4.8-10.8)
[2020-06-05 08:14] LABS: BILIRUBIN Negative (Negative); BLOOD Negative (Negative); CLARITY Cloudy (Clear); COLOR Yellow (Yellow); GLUCOSE Negative (Negative); KETONE Negative (Negative); LEUKO ESTERASE 3+ (Negative); NITRITE Negative (Negative); UROBILINOGEN 0.2 E.U./dl (0.0-1.0)
[2020-06-05 08:14] LABS: ACT PARTIAL THROMBO TIME 28.5 SECONDS (20.0-32.1); INTERNATIONAL NORM RATIO 0.9 (2.0-3.5)
[2020-06-05 08:20] LABS: ALBUMIN 3.2 gm/dl (3.1-4.5); ALKALINE PHOSPHATASE 210 U/L (45-117); BUN 9 mg/dl (7-24); CHLORIDE 96 mmol/L (98-107); CREATININE 0.69 mg/dL (0.55-1.02); LIPASE 167 U/L (73-393); SGOT/AST 76 IU/L (3-35); SGPT/ALT 98 U/L (12-78); SODIUM 129 mmol/L (136-145); TOTAL PROTEIN 7.5 gm/dL (6.4-8.2)
[2020-06-05 08:24] LABS: BACTERIA 3+; RBC 16-20 rbc/hpf (0-2); WBC TNTC wbc/hpf (0-5)
[2020-06-05 08:26] LABS: TROPONIN I < 0.015 ng/ml (<0.045)
[2020-06-05] MEDS ORDERED: HYDROCHLOROTHIA25 M1 PO (15:02)
[2020-06-06] VITALS: BP 156/59
[2020-06-06 06:16] LABS: BASO % 0.8 % (0.0-1.0); EOS % 0.6 % (1.0-4.0); HEMATOCRIT 34.8 % (37.0-47.0); LYMPH # 1.3 10*3/uL (1.3-4.4); LYMPH % 26.9 % (27.0-41.0); MEAN CELL VOLUME 85.1 fl (81.0-99.0); MEAN CORPUSCULAR HGB 28.4 pg (27.0-31.0); MEAN CORPUSCULAR HGB CONC 33.3 g/dl (33.0-37.0); MEAN PLATELET VOLUME 9.1 fl (9.6-12.3); MONO # 0.9 10*3/uL (0.1-1.0); MONO % 18.3 % (3.0-9.0); NEUT # 2.5 10*3/uL (2.3-7.9); PLATELET COUNT AUTOMATED 338 10*3/uL (130-400); RED BLOOD COUNT 4.09 10*6/uL (4.10-5.10); RED CELL DISTRI WIDTH 12.5 % (0-14.5); WHITE BLOOD COUNT 4.8 10*3/uL (4.8-10.8)
[2020-06-06 06:27] LABS: ALBUMIN 3.2 gm/dl (3.1-4.5); ALKALINE PHOSPHATASE 223 U/L (45-117); BUN 11 mg/dl (7-24); CHLORIDE 94 mmol/L (98-107); FREE T4 1.27 ng/dl (0.76-1.46); POTASSIUM 3.7 mmol/L (3.5-5.1); SGOT/AST 47 IU/L (3-35); SGPT/ALT 91 U/L (12-78); SODIUM 128 mmol/L (136-145); TOTAL PROTEIN 7.4 gm/dL (6.4-8.2)
[2020-06-06 08:00] VITALS: BP 144/64
[2020-06-06 12:00] VITALS: BP 146/66
[2020-06-06] MEDS ORDERED: OMNICEF300 MG PO (13:42)
== END 2020-06-06 15:35 | disposition home or self-care (01) ==
LOC: ED 07:18 → EDHOLD 10:41 → 4E 12:30
PROVIDERS: Emergency Medicine; Internal Medicine; ADMIT Internal Medicine; ATTEND Internal Medicine
DX: U07.1 COVID-19 (principal); N39.0 Urinary tract infection, site not specified; R42 Dizziness and giddiness; E87.1 Hypo-osmolality and hyponatremia; R74.01 Elevation of levels of liver transaminase levels; R79.82 Elevated C-reactive protein (CRP); E44.1 Mild protein-calorie malnutrition; D64.9 Anemia, unspecified; E87.8 Other disorders of electrolyte and fluid balance, not elsewhere classified; I10 Essential (primary) hypertension; F41.9 Anxiety disorder, unspecified; Z90.49 Acquired absence of other specified parts of digestive tract; Z90.89 Acquired absence of other organs

== ENCOUNTER → 2020-06-18 | Outpatient (CLI) | payer BC ==
[~2020-06-18] MED LIST changes: +ASPERCREME LID1 EACH TD; +METHOCARBAMOL500 M1 PO; +OMNICEF300 MG PO; +WELLBUTRIN SR150 MG PO
[2020-06-18 11:22] LABS: HEMATOCRIT 35.4 % (37.0-47.0); MEAN CELL VOLUME 89.6 fl (81.0-99.0); MEAN CORPUSCULAR HGB 28.4 pg (27.0-31.0); MEAN CORPUSCULAR HGB CONC 31.6 g/dl (33.0-37.0); MEAN PLATELET VOLUME 8.5 fl (9.6-12.3); RED BLOOD COUNT 3.95 10*6/uL (4.10-5.10); RED CELL DISTRI WIDTH 12.9 % (0-14.5); WHITE BLOOD COUNT 8.2 10*3/uL (4.8-10.8)
[2020-06-18 12:00] LABS: ALBUMIN 3.6 gm/dl (3.1-4.5); ALKALINE PHOSPHATASE 219 U/L (45-117); BUN 10 mg/dl (7-24); CHLORIDE 95 mmol/L (98-107); CREATININE 0.68 mg/dL (0.55-1.02); POTASSIUM 3.8 mmol/L (3.5-5.1); SGOT/AST 29 IU/L (3-35); SGPT/ALT 68 U/L (12-78); SODIUM 127 mmol/L (136-145); TOTAL PROTEIN 8.2 gm/dL (6.4-8.2)
== END | disposition home or self-care (01) ==
LOC: LAB 10:33
PROVIDERS: ATTEND Family Medicine
DX: E78.5 Hyperlipidemia, unspecified (principal); I10 Essential (primary) hypertension; R55 Syncope and collapse

== ENCOUNTER → 2020-07-03 | Outpatient (CLI) | payer BC ==
[2020-07-03 09:57] LABS: HEMATOCRIT 36.3 % (37.0-47.0); MEAN CELL VOLUME 89.6 fl (81.0-99.0); MEAN CORPUSCULAR HGB 28.9 pg (27.0-31.0); MEAN CORPUSCULAR HGB CONC 32.2 g/dl (33.0-37.0); MEAN PLATELET VOLUME 8.4 fl (9.6-12.3); RED BLOOD COUNT 4.05 10*6/uL (4.10-5.10); RED CELL DISTRI WIDTH 13.6 % (0-14.5); WHITE BLOOD COUNT 7.3 10*3/uL (4.8-10.8)
[2020-07-03 10:25] LABS: ALBUMIN 3.8 gm/dl (3.1-4.5); ALKALINE PHOSPHATASE 183 U/L (45-117); BUN 10 mg/dl (7-24); CHLORIDE 96 mmol/L (98-107); CREATININE 0.68 mg/dL (0.55-1.02); POTASSIUM 3.9 mmol/L (3.5-5.1); SGOT/AST 12 IU/L (3-35); SGPT/ALT 30 U/L (12-78); SODIUM 129 mmol/L (136-145); TOTAL PROTEIN 8.4 gm/dL (6.4-8.2)
== END | disposition home or self-care (01) ==
LOC: LAB 09:32
PROVIDERS: ATTEND Family Medicine
DX: I10 Essential (primary) hypertension (principal); E87.1 Hypo-osmolality and hyponatremia

== ENCOUNTER → 2020-09-26 | Outpatient (CLI) | payer BC | END | disposition home or self-care (01) | LOC: MAMMO 09:30 | PROVIDERS: ATTEND Nurse Practitioner Family | DX: Z12.31 Encounter for screening mammogram for malignant neoplasm of breast (principal); N64.89 Other specified disorders of breast ==

== ENCOUNTER 2020-10-14 12:58 | Emergency (ER) | payer BC ==
[~2020-10-14] VITALS: Wt 54.4 kg
[2020-10-14 13:13] VITALS: BP 190/88
[2020-10-14] MEDS ORDERED: AMOXICILLIN500 M2 PO ×3 (14:08→14:20)
== END 2020-10-14 14:13 | disposition home or self-care (01) ==
LOC: ED 12:58
DX: J02.9 Acute pharyngitis, unspecified (principal); Z88.8 Allergy status to other drugs, medicaments and biological substances; Z79.2 Long term (current) use of antibiotics; Z79.899 Other long term (current) drug therapy; Z90.49 Acquired absence of other specified parts of digestive tract; Z98.890 Other specified postprocedural states; Z98.1 Arthrodesis status; Z87.891 Personal history of nicotine dependence

== ENCOUNTER → 2020-10-31 | Outpatient (CLI) | payer BC ==
[~2020-10-31] MED LIST changes: +AMOXICILLIN500 M2 PO
[2020-10-31 15:33] LABS: HEMATOCRIT 34.5 % (37.0-47.0); MEAN CELL VOLUME 84.8 fl (81.0-99.0); MEAN CORPUSCULAR HGB 28.5 pg (27.0-31.0); MEAN CORPUSCULAR HGB CONC 33.6 g/dl (33.0-37.0); MEAN PLATELET VOLUME 8.3 fl (9.6-12.3); RED BLOOD COUNT 4.07 10*6/uL (4.10-5.10); WHITE BLOOD COUNT 10.3 10*3/uL (4.8-10.8)
[2020-10-31 15:49] LABS: ALBUMIN 3.7 gm/dl (3.1-4.5); ALKALINE PHOSPHATASE 153 U/L (45-117); BUN 10 mg/dl (7-24); CHLORIDE 92 mmol/L (98-107); CHOLESTEROL 173 mg/dL (<200); CREATININE 0.57 mg/dL (0.55-1.02); LDL CHOLESTEROL 76 mg/dL (9-159); POTASSIUM 3.8 mmol/L (3.5-5.1); SGOT/AST 20 IU/L (3-35); SGPT/ALT 31 U/L (12-78); SODIUM 126 mmol/L (136-145); TOTAL PROTEIN 7.9 gm/dL (6.4-8.2); TRIGLYCERIDES 78 mg/dl (<150)
== END | disposition home or self-care (01) ==
LOC: LAB 14:56
PROVIDERS: ATTEND Family Medicine
DX: I10 Essential (primary) hypertension (principal); E78.00 Pure hypercholesterolemia, unspecified; E87.1 Hypo-osmolality and hyponatremia

== ENCOUNTER → 2020-11-21 | Outpatient (CLI) | payer BC ==
[2020-11-21 10:39] LABS: ALBUMIN 3.7 gm/dl (3.1-4.5); BUN 9 mg/dl (7-24); CHLORIDE 97 mmol/L (98-107); POTASSIUM 4.4 mmol/L (3.5-5.1); SODIUM 130 mmol/L (136-145)
[2020-11-21 10:43] LABS: ALKALINE PHOSPHATASE 153 U/L (45-117); CREATININE 0.54 mg/dL (0.55-1.02); SGOT/AST 17 IU/L (3-35); SGPT/ALT 30 U/L (12-78); TOTAL PROTEIN 7.9 gm/dL (6.4-8.2)
== END | disposition home or self-care (01) ==
LOC: LAB 09:56
PROVIDERS: ATTEND Family Medicine
DX: E87.1 Hypo-osmolality and hyponatremia (principal)

== ENCOUNTER → 2020-12-13 | Outpatient (CLI) | payer BC ==
[2020-12-13 09:39] LABS: HEMATOCRIT 39.3 % (37.0-47.0); MEAN CELL VOLUME 88.9 fl (81.0-99.0); MEAN CORPUSCULAR HGB 28.7 pg (27.0-31.0); MEAN CORPUSCULAR HGB CONC 32.3 g/dl (33.0-37.0); MEAN PLATELET VOLUME 8.8 fl (9.6-12.3); RED BLOOD COUNT 4.42 10*6/uL (4.10-5.10); RED CELL DISTRI WIDTH 13.2 % (0-14.5); WHITE BLOOD COUNT 8.3 10*3/uL (4.8-10.8)
[2020-12-13 10:04] LABS: ALBUMIN 3.7 gm/dl (3.1-4.5); ALKALINE PHOSPHATASE 168 U/L (45-117); BUN 9 mg/dl (7-24); CHLORIDE 96 mmol/L (98-107); CREATININE 0.66 mg/dL (0.55-1.02); POTASSIUM 3.9 mmol/L (3.5-5.1); SGOT/AST 23 IU/L (3-35); SGPT/ALT 39 U/L (12-78); SODIUM 130 mmol/L (136-145); TOTAL PROTEIN 8.5 gm/dL (6.4-8.2)
== END | disposition home or self-care (01) ==
LOC: LAB 09:25
PROVIDERS: ATTEND Family Medicine
DX: E87.1 Hypo-osmolality and hyponatremia (principal); I10 Essential (primary) hypertension

== ENCOUNTER → 2021-05-29 | Outpatient (CLI) | payer BC ==
[2021-05-29 09:13] LABS: HEMATOCRIT 40.1 % (37.0-47.0); MEAN CELL VOLUME 88.5 fl (81.0-99.0); MEAN CORPUSCULAR HGB 29.6 pg (27.0-31.0); MEAN CORPUSCULAR HGB CONC 33.4 g/dl (33.0-37.0); MEAN PLATELET VOLUME 8.6 fl (9.6-12.3); RED BLOOD COUNT 4.53 10*6/uL (4.10-5.10); RED CELL DISTRI WIDTH 12.5 % (0-14.5); WHITE BLOOD COUNT 6.2 10*3/uL (4.8-10.8)
[2021-05-29 09:41] LABS: ALKALINE PHOSPHATASE 114 U/L (45-117); BUN 6 mg/dl (7-24); CHLORIDE 100 mmol/L (98-107); CHOLESTEROL 180 mg/dL (<200); CPK 88 U/L (26-192); CREATININE 0.67 mg/dL (0.55-1.02); LDL CHOLESTEROL 70 mg/dL (9-159); POTASSIUM 4.4 mmol/L (3.5-5.1); SGOT/AST 16 IU/L (3-35); SGPT/ALT 33 U/L (12-78); SODIUM 131 mmol/L (136-145); TOTAL PROTEIN 8.1 gm/dL (6.4-8.2); TRIGLYCERIDES 84 mg/dl (<150)
== END | disposition home or self-care (01) ==
LOC: LAB 08:42
PROVIDERS: ATTEND Family Medicine
DX: M17.12 Unilateral primary osteoarthritis, left knee (principal); I10 Essential (primary) hypertension; E78.00 Pure hypercholesterolemia, unspecified; E87.1 Hypo-osmolality and hyponatremia; R60.0 Localized edema

== ENCOUNTER → 2021-06-07 | Outpatient (CLI) | payer BC | END | disposition home or self-care (01) | LOC: US 10:54 | PROVIDERS: ATTEND Family Medicine | DX: M71.22 Synovial cyst of popliteal space [Baker], left knee (principal) ==

== ENCOUNTER → 2021-10-31 | Outpatient (CLI) | payer BC ==
[2021-10-31 09:51] LABS: MEAN CELL VOLUME 89.5 fl (81.0-99.0); MEAN CORPUSCULAR HGB 30.4 pg (27.0-31.0); MEAN PLATELET VOLUME 8.3 fl (9.6-12.3); RED BLOOD COUNT 4.47 10*6/uL (4.10-5.10); RED CELL DISTRI WIDTH 12.3 % (0-14.5); WHITE BLOOD COUNT 8.3 10*3/uL (4.8-10.8)
[2021-10-31 10:07] LABS: BUN 5 mg/dl (7-24); CHLORIDE 99 mmol/L (98-107); POTASSIUM 3.9 mmol/L (3.5-5.1); SGOT/AST 22 IU/L (3-35); SODIUM 132 mmol/L (136-145)
[2021-10-31 10:09] LABS: ALKALINE PHOSPHATASE 105 U/L (45-117); CHOLESTEROL 191 mg/dL (<200); CREATININE 0.62 mg/dL (0.55-1.02); LDL CHOLESTEROL 80 mg/dL (9-159); SGPT/ALT 29 U/L (12-78); TOTAL PROTEIN 7.9 gm/dL (6.4-8.2); TRIGLYCERIDES 60 mg/dl (<150)
== END | disposition home or self-care (01) ==
LOC: LAB 09:27
PROVIDERS: ATTEND Family Medicine
DX: I10 Essential (primary) hypertension (principal); E87.6 Hypokalemia; R60.0 Localized edema

== ENCOUNTER → 2022-02-24 | Outpatient (CLI) | payer BC ==
[2022-02-24 11:43] LABS: HEMATOCRIT 41.1 % (37.0-47.0); MEAN CELL VOLUME 89.5 fl (81.0-99.0); MEAN CORPUSCULAR HGB 30.7 pg (27.0-31.0); MEAN CORPUSCULAR HGB CONC 34.3 g/dl (33.0-37.0); MEAN PLATELET VOLUME 8.3 fl (9.6-12.3); RED BLOOD COUNT 4.59 10*6/uL (4.10-5.10); RED CELL DISTRI WIDTH 12.4 % (0-14.5); WHITE BLOOD COUNT 8.9 10*3/uL (4.8-10.8)
[2022-02-24 12:04] LABS: ALKALINE PHOSPHATASE 106 U/L (46-116); CHLORIDE 86 mmol/L (98-107); CREATININE 0.56 mg/dL (0.55-1.02); POTASSIUM 3.5 mmol/L (3.4-5.1); SGPT/ALT 40 U/L (10-49); SODIUM 122 mmol/L (136-145); TRIGLYCERIDES 65 mg/dl (<150)
[2022-02-24 12:05] LABS: BUN < 5 mg/dl (9-23); CHOLESTEROL 180 mg/dL (<200); LDL CHOLESTEROL 82 mg/dL (9-159); TOTAL PROTEIN 7.8 gm/dL (6.0-8.0)
[2022-02-24 12:46] LABS: VITAMIN D, 25-HYDROXY 34.1 ng/mL (30-100)
== END | disposition home or self-care (01) ==
LOC: LAB 11:01
PROVIDERS: ATTEND Family Medicine
DX: Z00.00 Encounter for general adult medical examination without abnormal findings (principal); J43.9 Emphysema, unspecified; I10 Essential (primary) hypertension; E55.9 Vitamin D deficiency, unspecified; R53.83 Other fatigue; Z87.891 Personal history of nicotine dependence

== ENCOUNTER → 2022-03-06 | Outpatient (CLI) | payer BC ==
[2022-03-06 10:43] LABS: ALKALINE PHOSPHATASE 79 U/L (46-116); CHLORIDE 95 mmol/L (98-107); CREATININE 0.55 mg/dL (0.55-1.02); SGPT/ALT 21 U/L (10-49); SODIUM 129 mmol/L (136-145); TOTAL PROTEIN 7.2 gm/dL (6.0-8.0)
[2022-03-06 10:44] LABS: BUN < 5 mg/dl (9-23)
== END | disposition home or self-care (01) ==
LOC: LAB 09:51
PROVIDERS: ATTEND Family Medicine
DX: I10 Essential (primary) hypertension (principal); E87.1 Hypo-osmolality and hyponatremia

== ENCOUNTER → 2022-03-10 | Outpatient (CLI) | payer BC ==
[2022-03-10 11:00] LABS: ALKALINE PHOSPHATASE 76 U/L (46-116); BUN 6 mg/dl (9-23); CHLORIDE 95 mmol/L (98-107); CREATININE 0.58 mg/dL (0.55-1.02); SGPT/ALT 19 U/L (10-49); SODIUM 130 mmol/L (136-145); TOTAL PROTEIN 7.3 gm/dL (6.0-8.0)
== END | disposition home or self-care (01) ==
LOC: LAB 10:04
PROVIDERS: ATTEND Family Medicine
DX: I10 Essential (primary) hypertension (principal); E87.1 Hypo-osmolality and hyponatremia

== ENCOUNTER → 2022-03-12 | Outpatient (CLI) | payer BC | END | disposition home or self-care (01) | LOC: US 15:00 | PROVIDERS: ATTEND Family Medicine | DX: R60.0 Localized edema (principal) ==

== ENCOUNTER → 2022-03-17 | Outpatient (CLI) | payer BC ==
[2022-03-17 10:14] LABS: HEMATOCRIT 39.6 % (37.0-47.0); MEAN CELL VOLUME 91.2 fl (81.0-99.0); MEAN CORPUSCULAR HGB 30.4 pg (27.0-31.0); MEAN CORPUSCULAR HGB CONC 33.3 g/dl (33.0-37.0); MEAN PLATELET VOLUME 8.5 fl (9.6-12.3); RED BLOOD COUNT 4.34 10*6/uL (4.10-5.10); RED CELL DISTRI WIDTH 12.7 % (0-14.5); WHITE BLOOD COUNT 7.1 10*3/uL (4.8-10.8)
[2022-03-17 10:43] LABS: ALKALINE PHOSPHATASE 83 U/L (46-116); BUN 6 mg/dl (9-23); CHLORIDE 95 mmol/L (98-107); CREATININE 0.51 mg/dL (0.55-1.02); SGPT/ALT 36 U/L (10-49); SODIUM 130 mmol/L (136-145); TOTAL PROTEIN 7.5 gm/dL (6.0-8.0)
== END | disposition home or self-care (01) ==
LOC: LAB 09:51
PROVIDERS: ATTEND Family Medicine
DX: I10 Essential (primary) hypertension (principal); Z79.899 Other long term (current) drug therapy

== ENCOUNTER → 2022-04-30 | Outpatient (CLI) | payer BC ==
[2022-04-30 11:12] LABS: ALKALINE PHOSPHATASE 101 U/L (46-116); CHLORIDE 92 mmol/L (98-107); SGPT/ALT 19 U/L (10-49); TOTAL PROTEIN 7.2 gm/dL (6.0-8.0)
[2022-04-30 11:19] LABS: BUN < 5 mg/dl (9-23)
== END | disposition home or self-care (01) ==
LOC: LAB 10:29
PROVIDERS: ATTEND Family Medicine
DX: E87.1 Hypo-osmolality and hyponatremia (principal)

== ENCOUNTER → 2022-05-07 | Outpatient (CLI) | payer BC ==
[2022-05-07 10:46] LABS: ALKALINE PHOSPHATASE 96 U/L (46-116); CHLORIDE 97 mmol/L (98-107); POTASSIUM 3.9 mmol/L (3.4-5.1); SGPT/ALT 14 U/L (10-49); TOTAL PROTEIN 7.4 gm/dL (6.0-8.0)
[2022-05-07 10:53] LABS: BUN < 5 mg/dl (9-23)
== END | disposition home or self-care (01) ==
LOC: LAB 09:32
PROVIDERS: ATTEND Family Medicine
DX: E87.0 Hyperosmolality and hypernatremia (principal)

== ENCOUNTER → 2022-05-23 | Outpatient (CLI) | payer BC ==
[2022-05-23 11:31] LABS: ALKALINE PHOSPHATASE 117 U/L (46-116); BUN 5 mg/dl (9-23); CHLORIDE 88 mmol/L (98-107); POTASSIUM 3.8 mmol/L (3.4-5.1); SGPT/ALT 20 U/L (10-49); TOTAL PROTEIN 8.2 gm/dL (6.0-8.0)
== END | disposition home or self-care (01) ==
LOC: LAB 10:50
PROVIDERS: ATTEND Family Medicine
DX: I10 Essential (primary) hypertension (principal); E87.1 Hypo-osmolality and hyponatremia

== ENCOUNTER → 2022-05-26 | Outpatient (CLI) | payer BC ==
[2022-05-26 16:24] LABS: ALKALINE PHOSPHATASE 96 U/L (46-116); BUN 7 mg/dl (9-23); CHLORIDE 99 mmol/L (98-107); POTASSIUM 4.1 mmol/L (3.4-5.1); SGPT/ALT 16 U/L (10-49); TOTAL PROTEIN 7.3 gm/dL (6.0-8.0)
== END | disposition home or self-care (01) ==
LOC: LAB 15:34
PROVIDERS: ATTEND Family Medicine
DX: E87.1 Hypo-osmolality and hyponatremia (principal)

== ENCOUNTER → 2022-06-12 | Outpatient (CLI) | payer BC ==
[2022-06-12 10:29] LABS: HEMATOCRIT 41.4 % (37.0-47.0); MEAN CELL VOLUME 88.7 fl (81.0-99.0); MEAN CORPUSCULAR HGB 27.6 pg (27.0-31.0); MEAN CORPUSCULAR HGB CONC 31.2 g/dl (33.0-37.0); MEAN PLATELET VOLUME 8.6 fl (9.6-12.3); RED BLOOD COUNT 4.67 10*6/uL (4.10-5.10); RED CELL DISTRI WIDTH 14.7 % (0-14.5); WHITE BLOOD COUNT 6.9 10*3/uL (4.8-10.8)
[2022-06-12 10:53] LABS: ALKALINE PHOSPHATASE 151 U/L (46-116); CHLORIDE 98 mmol/L (98-107); SGPT/ALT 41 U/L (10-49)
[2022-06-12 11:02] LABS: BUN < 5 mg/dl (9-23)
== END | disposition home or self-care (01) ==
LOC: LAB 09:44
PROVIDERS: ATTEND Family Medicine
DX: I10 Essential (primary) hypertension (principal); E87.6 Hypokalemia

== ENCOUNTER → 2022-07-29 | Outpatient (CLI) | payer BC ==
[2022-07-29 11:04] LABS: ALKALINE PHOSPHATASE 159 U/L (46-116); BUN 5 mg/dl (9-23); CHLORIDE 97 mmol/L (98-107); POTASSIUM 4.3 mmol/L (3.4-5.1); SGPT/ALT 27 U/L (10-49); TOTAL PROTEIN 7.9 gm/dL (6.0-8.0)
== END | disposition home or self-care (01) ==
LOC: LAB 10:14
PROVIDERS: ATTEND Family Medicine
DX: I10 Essential (primary) hypertension (principal); E87.1 Hypo-osmolality and hyponatremia

== ENCOUNTER → 2022-08-25 | Outpatient (CLI) | payer BC ==
[2022-08-25 11:32] LABS: ALKALINE PHOSPHATASE 123 U/L (46-116); BUN 5 mg/dl (9-23); CHLORIDE 95 mmol/L (98-107); POTASSIUM 3.9 mmol/L (3.4-5.1); SGPT/ALT 23 U/L (10-49)
== END | disposition home or self-care (01) ==
LOC: LAB 10:44
PROVIDERS: ATTEND Family Medicine
DX: E87.1 Hypo-osmolality and hyponatremia (principal)

== ENCOUNTER → 2022-09-16 | Outpatient (CLI) | payer BC ==
[2022-09-16 11:55] LABS: HEMATOCRIT 39.9 % (37.0-47.0); MEAN CELL VOLUME 88.9 fl (81.0-99.0); MEAN CORPUSCULAR HGB 29.4 pg (27.0-31.0); MEAN CORPUSCULAR HGB CONC 33.1 g/dl (33.0-37.0); MEAN PLATELET VOLUME 8.5 fl (9.6-12.3); RED BLOOD COUNT 4.49 10*6/uL (4.10-5.10); RED CELL DISTRI WIDTH 13.1 % (0-14.5); WHITE BLOOD COUNT 7.7 10*3/uL (4.8-10.8)
[2022-09-16 13:04] LABS: ALKALINE PHOSPHATASE 134 U/L (46-116); BUN 7 mg/dl (9-23); CHLORIDE 95 mmol/L (98-107); CHOLESTEROL 181 mg/dL (<200); LDL CHOLESTEROL 81 mg/dL (9-159); POTASSIUM 3.8 mmol/L (3.4-5.1); SGPT/ALT 22 U/L (10-49); TOTAL PROTEIN 7.7 gm/dL (6.0-8.0); TRIGLYCERIDES 94 mg/dl (<150)
[2022-09-17 02:06] LABS: TOTAL PROTEIN, SERUM 7.4 g/dL (6.0-8.5)
[2022-09-17 14:08] LABS: A/G RATIO 1.2 (0.7-1.7); ALPHA-1-GLOBULIN 0.3 g/dL (0.0-0.4); ALPHA-2-GLOBULIN 0.9 g/dL (0.4-1.0); BETA GLOBULIN 1.2 g/dL (0.7-1.3); GLOBULIN, TOTAL 3.4 g/dL (2.2-3.9); M-SPIKE Not Observed g/dL (Not Observed)
[2022-09-18 11:08] LABS: ALBUMIN, URINE 20.1 % (.); ALPHA-1-GLOBULIN, URINE 7.3 % (.); ALPHA-2-GLOBULIN, URINE 25.5 % (.); BETA GLOBULIN, URINE 34.1 % (.); M-SPIKE, % Not Observed % (Not Observed); PROTEIN,TOTAL - URINE RANDOM 4.8 mg/dL (Not Estab.)
== END ==
LOC: LAB 11:36
PROVIDERS: ATTEND Family Medicine
DX: I10 Essential (primary) hypertension (principal); E78.00 Pure hypercholesterolemia, unspecified; R60.9 Edema, unspecified; E87.1 Hypo-osmolality and hyponatremia

== ENCOUNTER → 2022-11-11 | Outpatient (CLI) | payer BC ==
[2022-11-11 12:16] LABS: ALKALINE PHOSPHATASE 183 U/L (46-116); BUN 5 mg/dl (9-23); CHLORIDE 97 mmol/L (98-107); POTASSIUM 4.3 mmol/L (3.4-5.1); SGPT/ALT 42 U/L (10-49); TOTAL PROTEIN 7.7 gm/dL (6.0-8.0)
== END | disposition home or self-care (01) ==
LOC: LAB 11:28
PROVIDERS: ATTEND Family Medicine
DX: E87.1 Hypo-osmolality and hyponatremia (principal)

== ENCOUNTER → 2022-11-25 | Outpatient (CLI) | payer BC ==
[2022-11-25 14:09] LABS: ALKALINE PHOSPHATASE 172 U/L (46-116); BUN 8 mg/dl (9-23); CHLORIDE 100 mmol/L (98-107); SGPT/ALT 31 U/L (10-49); TOTAL PROTEIN 7.4 gm/dL (6.0-8.0)
== END | disposition home or self-care (01) ==
LOC: LAB 13:22
PROVIDERS: ATTEND Family Medicine
DX: E87.6 Hypokalemia (principal)

== ENCOUNTER → 2022-12-05 | Outpatient (CLI) | payer BC ==
[2022-12-05 09:46] LABS: HEMATOCRIT 39.6 % (37.0-47.0); MEAN CELL VOLUME 90.4 fl (81.0-99.0); MEAN CORPUSCULAR HGB 29.5 pg (27.0-31.0); MEAN CORPUSCULAR HGB CONC 32.6 g/dl (33.0-37.0); MEAN PLATELET VOLUME 8.7 fl (9.6-12.3); RED BLOOD COUNT 4.38 10*6/uL (4.10-5.10); RED CELL DISTRI WIDTH 12.7 % (0-14.5); WHITE BLOOD COUNT 7.4 10*3/uL (4.8-10.8)
[2022-12-05 10:09] LABS: ALKALINE PHOSPHATASE 219 U/L (46-116); BUN 6 mg/dl (9-23); CHLORIDE 99 mmol/L (98-107); POTASSIUM 4.4 mmol/L (3.4-5.1); SGPT/ALT 39 U/L (10-49); TOTAL PROTEIN 7.9 gm/dL (6.0-8.0)
== END | disposition home or self-care (01) ==
LOC: LAB 09:10
PROVIDERS: ATTEND Family Medicine
DX: I10 Essential (primary) hypertension (principal); E78.5 Hyperlipidemia, unspecified; E83.42 Hypomagnesemia

== ENCOUNTER → 2023-03-11 | Outpatient (CLI) | payer BC ==
[2023-03-11 08:29] LABS: HEMATOCRIT 42.4 % (37.0-47.0); MEAN CELL VOLUME 90.4 fl (81.0-99.0); MEAN CORPUSCULAR HGB 28.8 pg (27.0-31.0); MEAN CORPUSCULAR HGB CONC 31.8 g/dl (33.0-37.0); MEAN PLATELET VOLUME 8.9 fl (9.6-12.3); RED BLOOD COUNT 4.69 10*6/uL (4.10-5.10); RED CELL DISTRI WIDTH 12.4 % (0-14.5); WHITE BLOOD COUNT 6.9 10*3/uL (4.8-10.8)
[2023-03-11 09:28] LABS: ALKALINE PHOSPHATASE 162 U/L (46-116); BUN 6 mg/dl (9-23); CHLORIDE 101 mmol/L (98-107); POTASSIUM 4.3 mmol/L (3.4-5.1); SGPT/ALT 20 U/L (5-49); TOTAL PROTEIN 7.4 gm/dL (6.0-8.0)
== END | disposition home or self-care (01) ==
LOC: LAB 07:54
PROVIDERS: ATTEND Family Medicine
DX: I10 Essential (primary) hypertension (principal); E74.9 Disorder of carbohydrate metabolism, unspecified; E87.1 Hypo-osmolality and hyponatremia

== ENCOUNTER → 2023-04-01 | Outpatient (CLI) | payer BC | END | disposition home or self-care (01) | LOC: CARD 08:30 | PROVIDERS: ATTEND Family Medicine | DX: I08.0 Rheumatic disorders of both mitral and aortic valves (principal); R01.1 Cardiac murmur, unspecified; I10 Essential (primary) hypertension ==

== ENCOUNTER → 2023-06-15 | Outpatient (CLI) | payer BC ==
[2023-06-15 07:57] LABS: HEMATOCRIT 41.5 % (37.0-47.0); MEAN CELL VOLUME 92.4 fl (81.0-99.0); MEAN CORPUSCULAR HGB 29.4 pg (27.0-31.0); MEAN CORPUSCULAR HGB CONC 31.8 g/dl (33.0-37.0); MEAN PLATELET VOLUME 8.5 fl (9.6-12.3); RED BLOOD COUNT 4.49 10*6/uL (4.10-5.10); RED CELL DISTRI WIDTH 12.4 % (0-14.5); WHITE BLOOD COUNT 6.3 10*3/uL (4.8-10.8)
[2023-06-15 08:36] LABS: ALKALINE PHOSPHATASE 120 U/L (46-116); BUN 7 mg/dl (9-23); CHLORIDE 100 mmol/L (98-107); CHOLESTEROL 197 mg/dL (<200); LDL CHOLESTEROL 98 mg/dL (9-159); POTASSIUM 4.2 mmol/L (3.4-5.1); SGPT/ALT 19 U/L (5-49); TOTAL PROTEIN 7.8 gm/dL (6.0-8.0); TRIGLYCERIDES 70 mg/dl (<150)
== END | disposition home or self-care (01) ==
LOC: LAB 07:42
PROVIDERS: ATTEND Family Medicine
DX: I10 Essential (primary) hypertension (principal); E74.9 Disorder of carbohydrate metabolism, unspecified; E78.00 Pure hypercholesterolemia, unspecified; E83.42 Hypomagnesemia

== ENCOUNTER → 2024-06-22 | Outpatient (CLI) | payer BC | END | disposition home or self-care (01) | LOC: MAMMO 02:47 | PROVIDERS: ATTEND Family Medicine | DX: Z12.31 Encounter for screening mammogram for malignant neoplasm of breast (principal); R92.333 Mammographic heterogeneous density, bilateral breasts ==

== ENCOUNTER → 2025-03-03 | Outpatient (CLI) | payer BC ==
[2025-03-03 11:58] LABS: MEAN CELL VOLUME 90.9 fl (81.0-99.0); MEAN CORPUSCULAR HGB 30.1 pg (27.0-31.0); MEAN PLATELET VOLUME 8.5 fl (9.6-12.3); NUCLEATED RED BLOOD CELL 0.0 % (0.0-0.0); NUCLEATED RED BLOOD CELL 0.0 10*3/uL (0.0-0.0); PLATELET COUNT AUTOMATED 330.0 10*3/uL (130-400); RED CELL DISTRI WIDTH 11.9 % (0-14.5)
[2025-03-03 12:30] LABS: BUN 6 mg/dl (9-23); LDL CHOLESTEROL 83 mg/dL (9-159); SGPT/ALT 27 U/L (5-49)
[2025-03-03 14:16] LABS: VITAMIN D, 25-HYDROXY 45.8 ng/mL (30-100)
== END | disposition home or self-care (01) ==
LOC: LAB 11:40
PROVIDERS: ATTEND Family Medicine
DX: I10 Essential (primary) hypertension (principal); E78.00 Pure hypercholesterolemia, unspecified; E55.9 Vitamin D deficiency, unspecified; E74.9 Disorder of carbohydrate metabolism, unspecified; R53.83 Other fatigue